=== PATIENT | female | born 1975 | race Caucasian/White ===

== ENCOUNTER 2017-08-14 14:24 | Emergency (ER) | payer MEDICAID ==
[2017-08-14 16:36] VITALS: BP 134/88
== END 2017-08-14 16:36 | disposition home or self-care (01) ==
LOC: ED 14:24
DX: R21 Rash and other nonspecific skin eruption (principal)

== ENCOUNTER 2017-11-15 17:31 | Emergency (ER) | payer SELFPAY ==
[~2017-11-15] VITALS: Ht 154.9 cm; Wt 80.5 kg
[2017-11-15 17:57] VITALS: BP 138/97
== END 2017-11-15 19:55 | disposition home or self-care (01) ==
LOC: ED 17:31
DX: M79.604 Pain in right leg (principal); R03.0 Elevated blood-pressure reading, without diagnosis of hypertension